=== PATIENT | male | born 1965 | race Caucasian/White ===

== ENCOUNTER 2021-07-16 05:50 | Day surgery (SDC) | payer OTHER, SELFPAY ==
[2021-07-15 17:31] LABS: MEAN CORPUSCULAR HEMOGLOBIN 29 pg (27-31); MEAN CORPUSCULAR HGB CONC 33 % (32-36)
[2021-07-15 17:34] LABS: BILIRUBIN,URINE NEGATIVE (NEGATIVE); BLOOD, URINE NEGATIVE (NEGATIVE); CLARITY/URINE CLEAR (CLEAR); COLOR,URINE YELLOW (YELLOW); GLUCOSE,URINE NEGATIVE (NEGATIVE); KETONES,URINE NEGATIVE (NEGATIVE); LEUKOCYTE ESTERASE ,URINE NEGATIVE (NEGATIVE); NITRITE, URINE NEGATIVE (NEGATIVE); PROTEIN URINE NEGATIVE (NEGATIVE); UROBILINOGEN,URINE 0.2 (0.2-1.0)
[2021-07-15 17:53] LABS: ALBUMIN 4.3 g/dL (3.4-4.8); CALCIUM 9.2 mg/dL (8.4-11.0); CREATININE 0.97 mg/dL (0.55-1.30); POTASSIUM 4.8 mmol/L (3.5-5.1); TOTAL BILIRUBIN 0.9 mg/dL (0.0-1.0)
[2021-07-15 18:00] LABS: WHITE BLOOD COUNT (AUTO) 7.8 K/uL (4.8-10.8)
[2021-07-15 18:01] LABS: HEMOGLOBIN 15.6 g/dL (14.0-18.0); MEAN CORPUSCULAR VOLUME 88 fL (79.0-98.0); RED BLOOD CELL COUNT(AUTO) 5.33 MIL/uL (4.2-6.2)
[2021-07-15 18:02] LABS: NEUTROPHILS % (AUTO) 54.7 % (40.0-70.0); PLATELET COUNT (AUTO) 228 K/uL (130-430); RED CELL DISTRIBUTION WIDTH 13.8 % (9.0-15.0)
[2021-07-15 18:03] LABS: BASOPHILS % (AUTO) 0.9 % (0.0-2.0); EOSINOPHILS % (AUTO) 3.1 % (0.0-4.0); LYMPHOCYTES # (AUTO) 2.2 K/uL (1.0-5.5); MONOCYTES % (AUTO) 13.3 % (1.7-9.3); NEUTROPHILS # (AUTO) 4.2 K/uL (1.8-7.7)
[2021-07-15 18:04] LABS: BASOPHILS # (AUTO) 0.1 K/uL (0.0-0.2); EOSINOPHILS # (AUTO) 0.2 K/uL (0.0-0.4)
[~2021-07-16] VITALS: Ht 188 cm; Wt 104.3 kg
[2021-07-16] MEDS ORDERED: CEFTRIAXONE SOD 1 GM/ D5W 50 ML IV ONE ×2 (07:00)
[2021-07-16] MEDS ORDERED: METOCLOPRAMIDE HCL 10 MG/2 ML VIAL IVP PRN (08:45)
[2021-07-16] MEDS ORDERED: ONDANSETRON HCL 4 MG/2 ML VIAL IVP PRN (08:45)
[2021-07-16] MEDS ORDERED: HYDROmorphone 1 MG/ML INJ. CARTRIDGE IVP PRN ×2 (08:45)
[2021-07-16] MEDS ORDERED: ePHEDrine sulfate 50 MG/ML VIAL IVP PRN (08:45)
[2021-07-16 12:09] VITALS: BP_SYST 138
== END 2021-07-16 11:30 | disposition home or self-care (01) ==
LOC: SMU 05:50 → SDS 05:50
PROVIDERS: ATTEND Urology
DX: N35.919 Unspecified urethral stricture, male, unspecified site (principal); G47.33 Obstructive sleep apnea (adult) (pediatric); E66.01 Morbid (severe) obesity due to excess calories; Z99.89 Dependence on other enabling machines and devices; Z20.822 Contact with and (suspected) exposure to COVID-19
CPT/HCPCS: 36415 ×2; 52281; 71046; 80053; 81003; 85025; 87426 ×2; J0696; J7060